=== PATIENT | male | born 1995 | race African-American/Black ===

== ENCOUNTER 2023-02-17 18:59 | Emergency (ER) | payer BC ==
[~2023-02-17] VITALS: Ht 185.5 cm; Wt 84.0 kg
[2023-02-17] MEDS ORDERED: NS IV 1000 ML 1,000 ML IV STA (19:57)
--- NOTE | 2023-02-17 20:01 | ED General ---
General Chief Complaint: General Problems/Pain Stated Complaint: GROGGY|LIMPING|HEADACHE|HIGH BLOOD PRESSURE Nursing Triage Note: TO ED VIA POV AND AMBULATORY TO ROOM 4 STATING, "I'VE BEEN KNOCKED OUT FOR HOURS". PT STATES HE REMEMBERS TALKING TO HIS MOTHER AT 1100 AND THEN SHORTLY AFTER HIS HEART WAS RACING AND THEN "EVERYTHING WENT BLACK" AND THE NEXT THING HE REMEMBERS IS HIS S/O WAKING HIM UP WHEN SHE GOT HOME FROM WORK JUST AFTER 1800. STATES HE HIT HIS HEAD ON FLOOR AND C/O HEADACHE. PT IS ALERT AND ORIENTED X4. Source of Information: Patient Exam Limitations: No Limitations (ERYN BAER) History of Present Illness Date Seen by Provider: Feb 17, 2023 Time Seen by Provider: 20:01 Initial Comments Patient is a 27-year-old male who presents the ED by POV ambulatory to room for stating that he been knocked out for hours. States around 1130 he was talking to his mother. He noticed his heart was racing started breathing heavily potentially hyperventilating. Patient states his vision started to narrow and potentially passed out. His significant other found him on the ground around 6 PM this evening. Patient was hard to arouse. She states after about 15 minutes of trying to wake him up he eventually became more alert and oriented. She contacted EMS who came to the house. States his only complaint is bilateral head pain. Rates pain 8 out of 10. No bleeding or laceration noted. States he has a history of seizures but not currently on seizure medication. Patient did not wake up with any type of chest pain feeling short of breath, visual changes, unilateral muscle weakness or sensory change of vomiting, diarrhea or cough. He denied of having any chest pain before his syncopal episode. States he may have gotten worked up talking to his mother. Denies any flulike symptoms. Denies of any urinary symptoms, drug use, alcohol use. No history of similar symptoms. He states he is active without any family history of sudden cardiac (ERYN BAER) Allergies and Home Medications Allergies Coded Allergies: No Known Drug Allergies (Unverified , 02/17/23) Patient Home Medication List Home Medication List Reviewed: Yes (ERYN BAER) Review of Systems Review of Systems Constitutional: No chills, No diaphoresis, No fever, No malaise, No weakness EENTM: No ear pain, No blurred vision, No double vision, No eye pain, No vision loss, No mouth pain, No mouth swelling, No nose pain, No throat pain Respiratory: No cough, No dyspnea on exertion Cardiovascular: No chest pain, No edema Gastrointestinal: No abdominal pain, No diarrhea, No dysphagia, No nausea, No vomiting Genitourinary: No decreased output, No discharge Musculoskeletal: No back pain, No gout Skin: No change in color, No change in hair/nails Psychiatric/Neurological: Denies Anxiety, Denies Depressed (ERYN BAER) All Other Systems Reviewed Negative Unless Noted: Yes (ERYN BAER) Past [id number] Hx Patient Social History Tobacco Use?: No Substance use?: Yes Substance type: Marijuana Alcohol Use?: Yes Alcohol Frequency: Several times a month (ERYN BAER) Physical Exam Vital Signs Vital Signs - First Documented 02/17/23 19:46 Temp 36.9 Pulse 68 Resp 16 B/P (MAP) 130/90 (103) Pulse Ox 100 O2 Delivery Room Air (MARIELA,REGIS K DO) Vital Signs Capillary Refill : Less Than 3 Seconds (ERYN BAER) Height, Weight, BMI Height: '" Weight: lbs. oz. kg; 24.00 BMI Method: General Appearance: No Apparent Distress, WD/WN Eyes: Bilateral Eye Normal Inspection, Bilateral Eye PERRL, Bilateral Eye EOMI HEENT: PERRL/EOMI, TMs Normal, Normal ENT Inspection, Pharynx Normal Neck: Full Range of Motion, Normal Inspection, Non Tender, Supple Respiratory: Chest Non Tender, Lungs Clear, Normal Breath Sounds, No Accessory Muscle Use, No Respiratory Distress Cardiovascular: Regular Rate, Rhythm, No Edema, No Gallop, No JVD Gastrointestinal: Normal Bowel Sounds, No Organomegaly, No Pulsatile Mass, Non Tender Extremity: Normal Capillary Refill, Normal Inspection, Normal Range of Motion, Non Tender Neurologic/Psychiatric: Alert, Oriented x3, No Motor/Sensory Deficits, Normal Mood/Affect, installment account checker II-XII Norm as Tested Skin: Normal Color, Warm/Dry (ERYN BAER) Progress/Results/Core Measures Suspected Sepsis SIRS Temperature: Pulse: 68 Respiratory Rate: 16 Laboratory Tests 02/17/23 20:28: White Blood Count 6.8 Blood Pressure 130 /90 Mean: 103 Laboratory Tests 02/17/23 20:28: Creatinine 0.85, Platelet Count 246, Total Bilirubin 1.0 (ERYN BAER) Results/Orders Lab Results Laboratory Tests Test 02/17/23 20:20 02/17/23 20:28 Range/Units Urine Color DARK YELLOW Urine Clarity CLEAR Urine pH 6.0 5-9 Urine Specific Elkins >=1.030 1.016-1.022 Urine Protein TRACE H NEGATIVE Urine Glucose (UA) NEGATIVE NEGATIVE Urine Ketones NEGATIVE NEGATIVE Urine Nitrite NEGATIVE NEGATIVE Urine Bilirubin NEGATIVE NEGATIVE Urine Urobilinogen 0.2 < = 1.0 MG/DL Urine Leukocyte Esterase NEGATIVE NEGATIVE Urine RBC (Auto) NEGATIVE NEGATIVE Urine RBC 0-2 /HPF Urine WBC 2-5 /HPF Urine Squamous Epithelial Cells NONE /HPF Urine Crystals PRESENT H /LPF Urine Amorphous Sediment FEW PASQUALE URATES H /LPF Urine Bacteria TRACE /HPF Urine Casts PRESENT /LPF Urine Hyaline Casts 2-5 H /LPF Urine Waxy Casts RARE H /LPF Urine Mucus LARGE H /LPF Urine Culture Indicated NO Urine Opiates Screen NEGATIVE NEGATIVE Urine Oxycodone Screen NEGATIVE NEGATIVE Urine Methadone Screen NEGATIVE NEGATIVE Urine Propoxyphene Screen NEGATIVE NEGATIVE Urine Barbiturates Screen NEGATIVE NEGATIVE Ur Tricyclic Antidepressants Screen NEGATIVE NEGATIVE Urine Phencyclidine Screen NEGATIVE NEGATIVE Urine Amphetamines Screen NEGATIVE NEGATIVE Urine Methamphetamines Screen NEGATIVE NEGATIVE Urine Benzodiazepines Screen NEGATIVE NEGATIVE Urine Cocaine Screen NEGATIVE NEGATIVE Urine Cannabinoids Screen POSITIVE H NEGATIVE White Blood Count 6.8 4.3-11.0 10^3/uL Red Blood Count 5.36 4.30-5.52 10^6/uL Hemoglobin 15.8 13.3-17.7 g/dL Hematocrit 47 40-54 % Mean Corpuscular Volume 88 80-99 fL Mean Corpuscular Hemoglobin 30 25-34 pg Mean Corpuscular Hemoglobin Concent 34 32-36 g/dL Red Cell Distribution Width 12.6 10.0-14.5 % Platelet Count 246 130-400 10^3/uL Mean Platelet Volume 9.4 9.0-12.2 fL Immature Granulocyte % (Auto) 0 % Neutrophils (%) (Auto) 46 42-75 % Lymphocytes (%) (Auto) 43 12-44 % Monocytes (%) (Auto) 10 0-12 % Eosinophils (%) (Auto) 0 0-10 % Basophils (%) (Auto) 0 0-10 % Neutrophils # (Auto) 3.1 1.8-7.8 10^3/uL Lymphocytes # (Auto) 2.9 1.0-4.0 10^3/uL Monocytes # (Auto) 0.7 0.0-1.0 10^3/uL Eosinophils # (Auto) 0.0 0.0-0.3 10^3/uL Basophils # (Auto) 0.0 0.0-0.1 10^3/uL Immature Granulocyte # (Auto) 0.0 0.0-0.1 10^3/uL Sodium Level 140 135-145 MMOL/L Potassium Level 3.8 3.6-5.0 MMOL/L Chloride Level 108 H 98-107 MMOL/L Carbon Dioxide Level 19 L 21-32 MMOL/L Anion Gap 13 5-14 MMOL/L Blood Urea Nitrogen 8 7-18 MG/DL Creatinine 0.85 0.60-1.30 MG/DL Estimat Glomerular Filtration Rate 124 BUN/Creatinine Ratio 9 Glucose Level 84 70-105 MG/DL Calcium Level 9.7 8.5-10.1 MG/DL Corrected Calcium 9.4 8.5-10.1 MG/DL Magnesium Level 2.1 1.6-2.4 MG/DL Total Bilirubin 1.0 0.1-1.0 MG/DL Aspartate Amino Transf (AST/SGOT) 20 5-34 U/L Alanine Aminotransferase (ALT/SGPT) 36 0-55 U/L Alkaline Phosphatase 64 40-136 U/L Troponin I < 0.028 <0.028 NG/ML Total Protein 8.0 6.4-8.2 GM/DL Albumin 4.4 3.2-4.5 GM/DL Lipase 7 L 8-78 U/L (MARIELA,REGIS K DO) Vital Signs/I&O 02/17/23 02/17/23 02/17/23 19:46 19:46 21:35 Temp 36.9 36.9 Pulse 68 69 Resp 16 16 B/P (MAP) 130/90 (103) 128/89 Pulse Ox 100 100 O2 Delivery Room Air Room Air Room Air (MARIELA,REGIS K DO) Vital Signs/I&O Capillary Refill : Less Than 3 Seconds (BAER,ERYN A PA) Blood Pressure Mean: 103 ECG Comment Sinus rhythm, 63 beats per minutes, QRS duration 81 MS, QTc 387 MS (ERYN BAER) Departure Communication (PCP) Patient is a 27-year-old male who presents to the ED for a syncopal episode. Patient states he was arguing with his mother this morning around 1130. Started feeling anxious hyperventilating, bilateral vision went narrow and had a syncopal episode. Patient Was found by his significant other this evening around 6. Hard to arouse for at least 15 minutes. Brought to ED by POV. On arrival only complaint is head pain. unsure if he fell. There is no evidence of contusion or laceration. Denies any chest pain, cough, shortness of breath, abdominal pain, vomiting or diarrhea. No chest pain before the syncopal episode. Due to current presentation and complaint EKG, CT scan of the head, general lab work was ordered. EKG showed normal sinus rhythm without evidence of a sinus arrhythmia, A-fib, ST depression or elevation. Troponin negative. CT scan of the head negative for hemorrhaging or fracture. CBC, CMP grossly unremarkable. Urinalysis was negative for infection. Drug screen positive for marijuana. Denied of any alcohol use or any drug use. Unclear etiology of the syncopal episode. Hard to believe that patient was unconscious for that long. He does have a history of seizure when he was a kid but not currently on any type of seizure medication. Patient does not appear postictal. He does not appear toxic or septic. No evidence of murmur. No known family history of sudden cardiac . Patient has no neurological red flag findings. No strokelike symptoms. Potentially neuro mediated syncope. No evidence of arrhythmia. He is not tachycardic or hypoxic suggesting PE. No chest pain. Cardiac work-up unremarkable. Denies of any bloody stools. Does not appear hypovolemic. Could be more psychogenic. Patient will be discharged with strict follow-up with his primary care physician in next 2 to 3 days. If any worsening symptoms return back to ED. (ERYN BAER) Impression Primary Impression: Syncope Disposition: 01 HOME, SELF-CARE Condition: Stable Departure-Patient Inst. Decision time for Depature: 21:26 (ERYN BAER) Referrals: [facility] – [place] Patient Instructions: Syncope (Fainting) (DC) Add. Discharge Instructions: Continue monitoring symptoms at home. If symptoms continue recommend returning back to ED. Follow-up your PCP for further evaluation. All discharge instructions reviewed with patient and/or family. Voiced understanding. Work/School Note: Work Release Form Date Seen in the Emergency Department: Feb 17, 2023 Return to Work: Feb 19, 2023 ATTENDING PHYSICIAN NOTE: I WAS PHYSICALLY PRESENT ER PHYSICIAN, BUT I WAS NOT INVOLVED IN ANY DECISION MAKING OR ANY CARE OF THIS PATIENT AND I AM NOT COLLABORATING PHYSICIAN. (REGIS SIERRA DO) ERYN BAER Feb 17, 2023 20:01 REGIS SIERRA DO Feb 19, 2023 01:12
--- NOTE | 2023-02-17 20:21 | Diagnostic Imaging Report ---
PROCEDURE: CT head without contrast. TECHNIQUE: Multiple contiguous axial images were obtained through the brain without the use of intravenous contrast. Auto Exposure Controls were utilized during the CT exam to meet ALARA standards for radiation dose reduction. INDICATION: Syncope The ventricles are normal in size, shape and position. There are no masses or hemorrhages. There are no extra-axial fluid collections. IMPRESSION: Negative CT head Dictated by: Dictated on workstation # [id number]
[2023-02-17 20:29] LABS: BILIRUBIN,URINE NEGATIVE (NEGATIVE); CLARITY,URINE CLEAR; COLOR,URINE DARK YELLOW; GLUCOSE, URINE (UA) NEGATIVE (NEGATIVE); KETONES,URINE NEGATIVE (NEGATIVE); LEUKOCYTE ESTERASE ,URINE NEGATIVE (NEGATIVE); NITRITE,URINE NEGATIVE (NEGATIVE); PROTEIN,URINE TRACE (NEGATIVE)
[2023-02-17 20:40] LABS: BASOPHILS % (AUTO) 0 % (0-10); EOSINOPHILS % (AUTO) 0 % (0-10); HEMATOCRIT 47 % (40-54); HEMOGLOBIN 15.8 g/dL (13.3-17.7); LYMPHOCYTES # (AUTO) 2.9 10^3/uL (1.0-4.0); LYMPHOCYTES % (AUTO) 43 % (12-44); MEAN CORPUSCULAR HEMOGLOBIN 30 pg (25-34); MEAN CORPUSCULAR HGB CONC 34 g/dL (32-36); MEAN CORPUSCULAR VOLUME 88 fL (80-99); MEAN PLATELET VOLUME 9.4 fL (9.0-12.2); MONOCYTES # (AUTO) 0.7 10^3/uL (0.0-1.0); MONOCYTES % (AUTO) 10 % (0-12); NEUTROPHILS # (AUTO) 3.1 10^3/uL (1.8-7.8); NEUTROPHILS % (AUTO) 46 % (42-75); PLATELET COUNT 246 10^3/uL (130-400); WHITE BLOOD COUNT 6.8 10^3/uL (4.3-11.0)
[2023-02-17 20:46] LABS: AMPHETAMINE SCREEN, URINE NEGATIVE (NEGATIVE); BARBITURATE SCREEN URINE NEGATIVE (NEGATIVE); BENZODIAZEPINES SCREEN URINE NEGATIVE (NEGATIVE); CANNABINOID SCREEN, URINE POSITIVE (NEGATIVE); COCAINE SCREEN URINE NEGATIVE (NEGATIVE); METHADONE STAT NEGATIVE (NEGATIVE); OPIATE SCREEN URINE NEGATIVE (NEGATIVE); OXYCODONE STAT NEGATIVE (NEGATIVE); PROPOXYPHENE STAT NEGATIVE (NEGATIVE); TRICYCLIC ANTIDEPRESSANTS SCRE NEGATIVE (NEGATIVE)
[2023-02-17 21:05] LABS: AMORPHOUS SEDIMENT,UR FEW AMOR URATES /LPF; BACTERIA,URINE TRACE /HPF; RBC,URINE 0-2 /HPF; WAXY CASTS,URINE RARE /LPF
[2023-02-17 21:10] LABS: ALANINE AMINOTRANSFERASE 36 U/L (0-55); ALBUMIN 4.4 GM/DL (3.2-4.5); ALKALINE PHOSPHATASE 64 U/L (40-136); BUN/CREATININE RATIO 9; CALCIUM 9.7 MG/DL (8.5-10.1); CARBON DIOXIDE 19 MMOL/L (21-32); CHLORIDE 108 MMOL/L (98-107); CREATININE SERUM 0.85 MG/DL (0.60-1.30); GFR ESTIMATED 124; GLUCOSE 84 MG/DL (70-105); LIPASE 7 U/L (8-78); MAGNESIUM 2.1 MG/DL (1.6-2.4); POTASSIUM 3.8 MMOL/L (3.6-5.0); SODIUM 140 MMOL/L (135-145)
[2023-02-17] MEDS ORDERED: ACETAMINOPHEN 500 MG TAB (TYLENOL) PO ONE (21:30)
[2023-02-17 21:35] VITALS: BP 128/89
== END 2023-02-17 21:35 | disposition home or self-care (01) ==
LOC: ER 19:02
DX: R55 Syncope and collapse (principal); Z28.310 Unvaccinated for COVID-19
CPT/HCPCS: 36415; 70450; 80053; 80306; 81000; 83690; 83735; 84484; 85025; 93005